=== PATIENT | female | born 1990 | race Caucasian/White ===

== ENCOUNTER 2021-08-17 12:42 | Emergency (ER) | payer OTHER ==
[~2021-08-17] VITALS: Ht 160 cm; Wt 60.6 kg
--- NOTE | 2021-08-17 13:08 | EKG ---
[address] [address] Test Date: 2021-08-17 Test Time: 12:45:02 Pat Name: HENRY ERVIN Department: Room: Gender: F Physical Meteorologist: LALI : 1990 Requested By: LUKAS COLÓN Order Number: [id number] Reading MD: Measurements Intervals [place] Rate: 72 P: 63 ID: [id number] QRS: 83 QRSD: 94 T: 38 QT: 402 QTc: 442 Interpretive Statements SINUS RHYTHM INCOMPLETE RIGHT BUNDLE BRANCH BLOCK NO SPECIFIC ECG ABNORMALITIES RI6.02 No previous ECG available for comparison
--- NOTE | 2021-08-17 13:24 | PHYS DOC ---
Past History Past Surgical History: No Surgical History (LUKAS COLÓN APRN) General Adult EDM: Chief Complaint: CHEST PAIN HPI: HPI: Patient is a 31-year-old female who presents to the ER for feeling like her heart is racing and a intermittent tightness located in the center of her chest that started [id number] today. She rates the tightness when it occurs 4 out of 10. She states that with her racing heart and chest tightness she was experiencing dizziness and feeling like she cannot take a deep breath. She states she was monitoring her heart rate on her watch and it was not elevated. Patient has a history of asthma. She has no family history of cardiac disease and she does not smoke. Patient's vital signs are stable. Patient denies any shortness of breath, nausea, vomiting, fevers, cough. (LUKAS COLÓN APRN) Review of Systems: Review of Systems: 14 body systems of the review of systems have been reviewed. See HPI for pertinent positive and negative responses, otherwise all other systems are negative, nonpertinent or noncontributory (LUKAS COLÓN APRN) Allergies: Allergies: Allergies Coded Allergies Type Severity Reaction Last Updated Verified No Known Drug Allergies 08/17/21 No (LUKAS COLÓN APRN) Physical Exam: PE: Constitutional: Well developed, well nourished, no acute distress, non-toxic appearance. [] HENT: Normocephalic, atraumatic, bilateral external ears normal, oropharynx moist, no oral exudates, nose normal. [] Eyes: PERRL, EOMI, conjunctiva normal, no discharge. [] Neck: Normal range of motion, no stridor Cardiovascular:Heart rate regular rhythm, no murmur, chest pain not reproducible [] Lungs & Thorax: Bilateral breath sounds clear to auscultation [] Abdomen: Bowel sounds normal, soft, no tenderness, no masses, no pulsatile masses. [] Skin: Warm, dry, no erythema, no rash. [] Back: Normal range of motion Extremities: No tenderness, no cyanosis, no clubbing, ROM intact, no edema. [] Neurologic: Alert and oriented X 3, normal motor function, normal sensory function, no focal deficits noted. [] Psychologic: Affect normal, judgement normal, mood normal. [] (LUKAS COLÓN APRN) Current Patient Data: Labs: Laboratory Tests Test 08/17/21 13:16 White Blood Count 8.0 x10^3/uL Red Blood Count 4.58 x10^6/uL Hemoglobin 13.8 g/dL Hematocrit 40.4 % Mean Corpuscular Volume 88 fL Mean Corpuscular Hemoglobin 30 pg Mean Corpuscular Hemoglobin Concent 34 g/dL Red Cell Distribution Width 13.1 % Platelet Count 308 x10^3/uL Neutrophils (%) (Auto) 56 % Lymphocytes (%) (Auto) 38 % Monocytes (%) (Auto) 5 % Eosinophils (%) (Auto) 1 % Basophils (%) (Auto) 0 % Neutrophils # (Auto) 4.5 x10^3uL Lymphocytes # (Auto) 3.0 x10^3/uL Monocytes # (Auto) 0.4 x10^3/uL Eosinophils # (Auto) 0.0 x10^3/uL Basophils # (Auto) 0.0 x10^3/uL Sodium Level 139 mmol/L Potassium Level 3.7 mmol/L Chloride Level 101 mmol/L Carbon Dioxide Level 28 mmol/L Anion Gap 10 Blood Urea Nitrogen 9 mg/dL Creatinine 0.7 mg/dL Estimated GFR (Cockcroft-Gault) 97.0 BUN/Creatinine Ratio 13 Glucose Level 109 mg/dL Calcium Level 9.6 mg/dL Total Bilirubin 0.4 mg/dL Aspartate Amino Transf (AST/SGOT) 16 U/L Alanine Aminotransferase (ALT/SGPT) 22 U/L Alkaline Phosphatase 70 U/L Troponin I Quantitative < 0.017 ng/mL Total Protein 8.3 g/dL Albumin 4.3 g/dL Albumin/Globulin Ratio 1.1 Vital Signs: Vital Signs Date Time Temp Pulse Resp B/P (MAP) Pulse Ox O2 Delivery O2 Flow Rate FiO2 08/17/21 13:03 98.5 76 13 139/83 (101) 99 Room Air (LUKAS COLÓN ASSESSMENT MANAGER) EKG: EKG: EKG performed by ER staff at 1245 shows sinus rhythm, no STEMI read by Dr. Castañeda 1252. [] (LUKAS COLÓN ASSESSMENT MANAGER) Radiology/Procedures: Radiology/Procedures: []PROCEDURE: PORTABLE CHEST 1V Study: XR CHEST 1V Indication: Chest pain. Comparison: None. Findings: The cardiomediastinal silhouette and chicho are within normal limits. No lobar consolidation. No layering effusion or pneumothorax. Impression: No pneumothorax or other discrete abnormality to help explain reported chest pain. Electronically signed by: MEHREEN STAHL MD (08/17/2021 2:30 PM) [facility] DICTATED AND SIGNED BY: MEHREEN STAHL MD DATE: 08/17/21 1427 CC: LUKAS COLÓN APRN; PCP,NO ~MTH0 0 (LUKAS COLÓN APRN) Heart Score: C/O Chest Pain: Yes HEART Score for Chest Pain: HEART Score for Chest Pain Response (Comments) Value History Slighlty/Non-Suspicious 0 ECG Normal 0 Age < 45 0 Risk Factors No Risk Factors 0 Troponin < Normal Limit 0 Total 0 Risk Factors: Risk Factors: DM, Current or recent (<one month) smoker, HTN, HLP, family history of CAD, obesity. Risk Scores: Score 0 - 3: 2.5% MACE over next 6 weeks - Discharge Home Score 4 - 6: 20.3% MACE over next 6 weeks - Admit for Clinical Observation Score 7 - 10: 72.7% MACE over next 6 weeks - Early Invasive Strategies (LUKAS COLÓN APRN) Course & Med Decision Making: Course & Med Decision Making Pertinent Labs and Imaging studies reviewed. (See chart for details) [] Patient is a 31-year-old female with medical hx or family hx of cardiac disease who presents to the ER with intermittent chest tightness and feeling like her heart is racing associated with dizziness and feeling like she cannot take a deep breath. She states that during triage she is not currently having the pain. Work-up in the ER consisted of blood work, EKG, chest x-ray. Patient's heart score is 0. Work-up in the ER was unremarkable. Patient advised to follow-up with her primary care provider regarding her ER visit. I discussed with patient all findings and diagnostic testing as well as the need to follow-up with PCP for further evaluation and treatment or return to the ER if any new or worsening symptoms. Strict return precautions were also discussed at length. Patient voiced understanding and agreement with the plan. Patient is hemodynamically stable at the time of disposition. (LUKAS COLÓN APRN) Dragon Disclaimer: Dragon Disclaimer: This electronic medical record was generated, in whole or in part, using a voice recognition dictation system. (LUKAS COLÓN APRN) Attending Co-Sign The patient was seen and interviewed as well as examined at the bedside. The chart was reviewed. The case was discussed. Agree with the plan of care. (RUBI CASTAÑEDA DO) Departure Departure: Impression: Primary Impression: Chest pain Qualified Codes: R07.9 - Chest pain, unspecified Disposition: HOME / SELF CARE / HOMELESS Condition: GOOD Patient Instructions: Chest Pain (Nonspecific) Additional Instructions: You were seen in the ER today for chest pain. There are many causes of the chest pain such as cardiac issues, acid reflux, anxiety. As we discussed, at this time it does not appear that you are having an acute coronary event. Your work-up was unremarkable in the ER. You will need to follow-up with your primary care provider tomorrow regarding your ER visit. If you develop chest pain, shortness of breath, dizziness or lightheadedness, intractable nausea or vomiting or any new or worsening concerns you will need to return to the ER. EMERGENCY DEPARTMENT GENERAL DISCHARGE INSTRUCTIONS Thank you for coming to [facility] (ED) today and trusting us with you care. We trust that you had a positivie experience in our Emergency Department. If you wish to speak to the department management, you may call the director at [phone]. YOUR FOLLOW UP INSTRUCTIONS ARE FOLLOWS: 1. Do you have a private Doctor? If you do not have a private doctor, please ask for a resource list of physicians or clinics that may be able to assist you with follow up care. 2. The Emergency Physician has interpreted your x-rays. The X-Ray specialist will also review them. If there is a change in the findings, you will be notified in 48 hours when at all possible. 3. A lab test or culture has been done, your results will be reviewed and you will be notified if you need a change in treatment. ADDITIONAL INSTRUCTIONS AND INFORMATION: 1. Your care today has been supervised by a physician who is specially trained in emergency care. Many problems require more than one evaluation for a complete diagnosis and treatment. We recommend that you schedule your follow up appointment as recommended to ensure complete treatment of you illness or injury. If you are unable to obtain follow up care and continue to have a problem, or if your condition worsens, we recommend that you return to the ED. 2. We are not able to safely determine your condition over the phone nor are we able to give sound medical advice over the phone. For these safety reasons, if you call for medical advice we will ask you to come to the ED for further evaluation. 3. If you have any questions regarding these discharge instructions please call the ED at [phone]. SAFETY INFORMATION: In the interest of safety, wellness, and injury prevention; we encourage you to wear your sealbelt, if you smoke; quite smoking, and we encourage family to use a protective helmet for bicycling and other sporting events that present an increased risk for head injury. IF YOUR SYMPTOMS WORSEN OR NEW SYMPTOMS DEVELOP, OR YOU HAVE CONCERNS ABOUT YOUR CONDITION; OR IF YOUR CONDITION WORSENS WHILE YOU ARE WAITING FOR YOUR FOLLOW UP APPOINTMENT; EITHER CONTACT YOUR PRIMARY CARE DOCTOR, THE PHYSICIAN WHOSE NAME AND NUMBER YOU WERE GIVEN, OR RETURN TO THE ED IMMEDIATELY. LUKAS COLÓN APRN Aug 17, 2021 13:24 RUBI CASTAÑEDA DO Aug 17, 2021 17:38
[2021-08-17 13:32] LABS: BASO % 0 % (0-3); EOS % 1 % (0-3); HEMATOCRIT 40.4 % (36.0-47.0); HEMOGLOBIN 13.8 g/dL (12.0-15.5); LYMPH % 38 % (24-48); MEAN CORPUSCULAR HEMOGLOBIN 30 pg (25-35); MEAN CORPUSCULAR HGB CONC 34 g/dL (31-37); MEAN CORPUSCULAR VOLUME 88 fL (79-100); MONO # 0.4 x10^3/uL (0.0-1.1); MONO % 5 % (0-9); NEUT # 4.5 x10^3uL (1.8-7.7); NEUT % 56 % (31-73); PLATELET COUNT 308 x10^3/uL (140-400); RED BLOOD COUNT 4.58 x10^6/uL (3.50-5.40); RED CELL DISTRIBUTION WIDTH 13.1 % (11.5-14.5)
[2021-08-17 13:41] LABS: CALCIUM 9.6 mg/dL (8.5-10.1); CREATININE 0.7 mg/dL (0.6-1.0); POTASSIUM 3.7 mmol/L (3.5-5.1)
[2021-08-17 13:48] LABS: ALBUMIN 4.3 g/dL (3.4-5.0); ALBUMIN/GLOBULIN RATIO 1.1 (1.0-1.7); TOTAL BILIRUBIN 0.4 mg/dL (0.2-1.0); TOTAL PROTEIN 8.3 g/dL (6.4-8.2)
--- NOTE | 2021-08-17 14:32 | RAD ---
Study: XR CHEST 1V Indication: Chest pain. Comparison: None. Findings: The cardiomediastinal silhouette and chicho are within normal limits. No lobar consolidation. No layeri ng effusion or pneumothorax. Impression: No pneumothorax or other discrete abnormality to help explain reported chest pain. Electronically signed by: MEHREEN STAHL MD (08/17/2021 2:30 PM) [facility]
[2021-08-17 15:01] VITALS: BP 121/81
[2021-08-17 15:33] LABS: BACTERIA,URINE MOD /HPF (0-FEW); BILIRUBIN,URINE NEG (NEG); CLARITY,URINE CLEAR; COLOR,URINE YELLOW; GLUCOSE,URINE NEG (NEG); NITRITE,URINE NEG (NEG); SQUAMOUS EPITHELIAL CELL,UR MANY /LPF; UROBILINOGEN,URINE 0.2 mg/dL (0.2 mg/dL); YEAST,URINE PRESENT /HPF
== END 2021-08-17 15:05 | disposition home or self-care (01) ==
LOC: ER 12:42
DX: R07.89 Other chest pain (principal); R42 Dizziness and giddiness; R00.0 Tachycardia, unspecified
CPT/HCPCS: 36415; 71045; 80053; 81001; 81025; 84484; 85025; 87086; 87147; 93005; 99285-25